=== PATIENT | female | born 2000 | race Two or more races ===

== ENCOUNTER 2022-05-12 17:17 | Emergency (ER) | payer OTHER ==
[~2022-05-12] VITALS: Ht 162.6 cm; Wt 56.7 kg
[2022-05-12] MEDS ORDERED: SINGULAIR10 MG PO (17:31)
== END 2022-05-12 19:44 | disposition home or self-care (01) ==
LOC: ER 17:17
DX: J10.1 Influenza due to other identified influenza virus with other respiratory manifestations (principal); J06.9 Acute upper respiratory infection, unspecified; Z20.822 Contact with and (suspected) exposure to COVID-19

== ENCOUNTER 2023-03-17 09:16 | Emergency (ER) | payer OTHER ==
[~2023-03-17] VITALS: Ht 160 cm; Wt 54.9 kg
[~2023-03-17 09:16] MED LIST: SINGULAIR10 MG PO
[2023-03-17 10:39] LABS: PH,URINE 5.5 (5.0-8.0); URINE APPEARANCE Clear; URINE BILIRRUBIN Negative (NEGATIVE); URINE BLOOD Small; URINE COLOR Yellow; URINE GLUCOSE Negative (NEGATIVE); URINE LEUKOCYTE Negative; URINE NITRATE Negative; URINE PROTEIN Negative (NEGATIVE); URINE UROBILINOGEN 0.2 E.U./dl
[2023-03-17 10:49] LABS: HEMATOCRIT 41.5 % (36.0-45.00); HEMOGLOBIN 13.7 g/dL (12.0-15.00); MEAN CELL VOLUME 84.8 fL (80.00-100.00); MEAN CORPUSCULAR HEMOGLOBIN 28.1 pg (27.00-32.0); MEAN CORPUSCULAR HGB CONC 33.1 g/dl (32.0-36.0); PLATELET COUNT 338 K/uL (150-450); RED BLOOD COUNT 4.89 M/uL (4.00-6.00)
[2023-03-17 10:54] LABS: URINE BACTERIA 1825.7 uL (0.0-1933); URINE EPITHELIAL CELLS 39.1 uL (0.0-38.8); URINE RBC 45.9 uL (0.0-20.8); URINE WBC 6.1 uL (0.0-23.2)
[2023-03-17 11:20] LABS: CALCIUM 9.1 mg/dL (8.5-10.1); CREATININE SERUM 0.53 mg/dL (0.55-1.02); GFR 145.62; POTASSIUM 3.63 mEq/L (3.5-5.1)
== END 2023-03-17 17:32 | disposition home or self-care (01) ==
LOC: ER 09:16
PROVIDERS: General Practice
DX: R10.9 Unspecified abdominal pain (principal); J45.909 Unspecified asthma, uncomplicated; L20.81 Atopic neurodermatitis; Z91.018 Allergy to other foods

== ENCOUNTER 2023-04-13 19:36 | Emergency (ER) | payer OTHER ==
[~2023-04-13] VITALS: Ht 160 cm; Wt 55.3 kg
[2023-04-13 21:28] LABS: HEMOGLOBIN 14.1 g/dL (12.0-15.00); MEAN CELL VOLUME 84.3 fL (80.00-100.00); MEAN CORPUSCULAR HEMOGLOBIN 28.3 pg (27.00-32.0); MEAN CORPUSCULAR HGB CONC 33.6 g/dl (32.0-36.0); PLATELET COUNT 344 K/uL (150-450); RED BLOOD COUNT 4.98 M/uL (4.00-6.00); RED CELL DISTRIBUTION WIDTH 13.1 % (11.5-14.5)
[2023-04-13 21:50] LABS: ALKALINE PHOSPHATASE 58 U/L (50-136); ALT/SGPT 20 U/L (12-78); AMYLASE 54 U/L (25-115); ANION GAP 7 (10.0-20.0); AST/SGOT 11 U/L (15-37); BILIRUBIN TOTAL 0.64 mg/dL (0.3-1.2); BLOOD UREA NITROGEN 8 mg/dL (7-18); BUN CREA RATIO 12 (7.0-25.0); CALCIUM 9.6 mg/dL (8.5-10.1); CARBON DIOXIDE 31 mEq/L (21-32); CHLORIDE 107 mmol/L (98-107); CREATININE SERUM 0.67 mg/dL (0.55-1.02); GFR 110.06; GLOBULINA 3.7 G/DL (2.4-3.5); GLUCOSE FASTING 66 mg/dL (65-100); LIPASE 43 U/L (13-75); OSMOLALITY SERUM 278 MOSM/KG (275-295); SODIUM 141 mmol/L (136-145); TOTAL PROTEIN 7.7 gm/dL (6.4-8.2)
[2023-04-13 21:59] LABS: HCG QUANTITATIVE < 1 mUI/mL (1-3)
[2023-04-13 22:28] LABS: PH,URINE 7.5 (5.0-8.0); URINE APPEARANCE Clear; URINE BILIRRUBIN Negative (NEGATIVE); URINE BLOOD Negative; URINE COLOR Yellow; URINE GLUCOSE Negative (NEGATIVE); URINE LEUKOCYTE Negative; URINE NITRATE Negative; URINE PROTEIN Negative (NEGATIVE); URINE UROBILINOGEN 0.2 E.U./dl
[2023-04-13 22:31] LABS: URINE BACTERIA 663.7 uL (0.0-1933); URINE EPITHELIAL CELLS 17.7 uL (0.0-38.8); URINE RBC 3.5 uL (0.0-20.8); URINE WBC 2.1 uL (0.0-23.2)
== END 2023-04-14 01:21 | disposition home or self-care (01) ==
LOC: ER 19:36
PROVIDERS: General Practice
DX: R10.2 Pelvic and perineal pain (principal); K58.8 Other irritable bowel syndrome; L20.89 Other atopic dermatitis; Z91.018 Allergy to other foods; N83.01 Follicular cyst of right ovary
CPT/HCPCS: 36415; 76830; 96372; 99284; J1885